=== PATIENT | female | born 1945 | race Caucasian/White ===

== ENCOUNTER 2017-01-09 13:54 | Outpatient (CLI) | payer OTHER ==
--- NOTE | 2017-01-11 11:47 | DIAGNOSTIC IMAGING REPORT ---
PROCEDURE: MG BILATERAL SCREENING W/CAD INDICATION: SCREENING. Personal history of breast cancer in 1999. TECHNIQUE: Bilateral CC and MLO digital views. COMPARISON: Bilateral mammograms 08/11/2015, 07/29/2014 and right mammogram 01/21/2014. FINDINGS: Computer-aided detection applied. Mildly dense. Stable left upper outer quadrant surgical and post radiation changes. Scattered dystrophic calcifications. No change. IMPRESSION: 1. No mammographic evidence of malignancy 2. Stable left upper outer quadrant post surgical and post radiation changes. RESULT CODE: 2- Benign finding(s). A. A negative report should not delay biopsy if a dominant or clinically suspicious mass is present. 10-15% of cancers are not identified by x-ray. B. A negative report may reinforce clinical impression. C. Adenosis and dense breasts may obscure an underlying neoplasm. D. False positive reports average 6-10%. E.. A yearly screening mammogram is recommended. A reminder letter will be scheduled.
== END 2017-01-09 23:00 ==
LOC: MAM SRH 13:54
DX: Z12.31 Encounter for screening mammogram for malignant neoplasm of breast (principal); Z85.3 Personal history of malignant neoplasm of breast